=== PATIENT | female | born 1985 | race Caucasian/White ===

== ENCOUNTER 2016-08-04 10:04 | Emergency (ER) | payer OTHER ==
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
== END 2016-08-04 11:20 | disposition home or self-care (01) ==
LOC: CFTX 10:04 → CED 10:04 → CFTX 11:00
DX: S01.01XA Laceration without foreign body of scalp, initial encounter (principal); M54.2 Cervicalgia; R11.0 Nausea; F17.210 Nicotine dependence, cigarettes, uncomplicated; W51.XXXA Accidental striking against or bumped into by another person, initial encounter; Y92.410 Unspecified street and highway as the place of occurrence of the external cause
CPT/HCPCS: 12001; 70450; 72125; 90471; 90715; 99283

== ENCOUNTER 2016-08-10 10:06 | Emergency (ER) | payer OTHER | END 2016-08-10 10:43 | disposition home or self-care (01) | LOC: CFTX 10:06 → CED 10:06 → CFTX 10:42 | DX: Z48.02 Encounter for removal of sutures (principal); F17.200 Nicotine dependence, unspecified, uncomplicated | CPT/HCPCS: 99281 ==